=== PATIENT | female | born 1995 | race Caucasian/White ===

== ENCOUNTER 2017-08-16 18:58 | Emergency (ER) | payer BC ==
--- NOTE | 2017-08-16 19:25 | EDM.PDOC ---
ED HPI GENERAL MEDICAL PROBLEM - General Chief Complaint: ENT Problem Stated Complaint: SORE THROAT Time Seen by Provider: 08/16/17 19:20 Source of Information: Reports: Patient History Limitations: Reports: No Limitations - History of Present Illness INITIAL COMMENTS - FREE TEXT/NARRATIVE: c/o ST x 1d no fever, lives with 1yo son who is not ill, works at [employer] no hayfever no rhinorrhea h/o viral ST in past throat Pain Score (Numeric/FACES): 9 - Related Data Allergies Allergy/AdvReac Type Severity Reaction Status Date / Time No Known Allergies Allergy Verified 08/16/17 19:15 Home Meds: Home Meds NK [No Known Home Meds] 08/16/17 [History] Past Medical History - Past Health History Medical/Surgical History: Denies Medical/Surgical History Social & Family History - Tobacco Use Smoking Status *Q: Never Smoker - Recreational Drug Use Recreational Drug Use: No ED ROS ENT - Review of Systems Review Of Systems: See Below Constitutional: Reports: No Symptoms HEENT: Reports: Throat Pain Respiratory: Reports: No Symptoms Cardiovascular: Reports: No Symptoms Endocrine: Reports: No Symptoms GI/Abdominal: Reports: No Symptoms : Reports: No Symptoms Musculoskeletal: Reports: No Symptoms Skin: Reports: No Symptoms Neurological: Reports: No Symptoms Psychiatric: Reports: No Symptoms Hematologic/Lymphatic: Reports: No Symptoms Immunologic: Reports: No Symptoms ED EXAM, ENT - Physical Exam Exam: See Below Exam Limited By: No Limitations General Appearance: Alert, WD/WN, No Apparent Distress Ears: Normal External Exam, Normal Canal, Hearing Grossly Normal, Normal TMs Nose: Normal Inspection, Normal Mucousa, No Blood Mouth/Throat: Other (mild red o-p, 1+ tonsils, no exudate) Head: Atraumatic, Normocephalic Neck: Other (several 0.5 cm at each submandibular angle, nontender) Respiratory/Chest: No Respiratory Distress, Lungs Clear, Normal Breath Sounds, No Accessory Muscle Use, Chest Non-Tender Cardiovascular: Regular Rate, Rhythm, No Edema, No Gallop, No Murmur, No Rub GI/Abdominal: Soft, Non-Tender Back: Normal Inspection, Full Range of Motion Extremities: Normal Inspection, Normal Range of Motion, Non-Tender, No Pedal Edema, Normal Capillary Refill Neurological: Alert, Oriented, CN II-XII Intact, Normal Cognition, No Motor/ Sensory Deficits Psychiatric: Normal Affect, Normal Mood Skin: Warm, Dry, Intact, Normal Color, No Rash Course - Vital Signs Last Recorded V/S: Last Vital Signs Temp 36.7 C 08/16/17 19:11 Pulse 94 08/16/17 19:11 Resp 16 08/16/17 19:11 BP 122/72 08/16/17 19:11 Pulse Ox 100 08/16/17 19:11 - Orders/Labs/Meds Orders: Active Orders 24 hr Category Date Time Status CULTURE STREP A CONFIRMATION [RM] Stat Lab 08/16/17 19:10 Results STREP SCRN A RAPID W CULT CONF [RM] Stat Lab 08/16/17 19:10 Results - Re-Assessments/Exams Free Text/Narrative Re-Assessment/Exam: 08/16/17 20:04 strep test neg Departure - Departure Time of Disposition: 20:04 Disposition: Refer to Observation Condition: Good Clinical Impression: Acute viral pharyngitis - Discharge Information Instructions: Pharyngitis Referrals: Jesse Hines MD [Primary Care Provider] - Forms: ED Department Discharge Additional Instructions: It will take another 4 days to run its course. Take ibuprofen 200 mg 3 tabs and/or acetaminophen 500 mg 2 tabs 4 times a day for 4 days. Use good handwashing. Get adequate rest. May return to work in 3 days if you are feeling better. If not, return to work in 5 days. See your doctor or return to ED if you are feeling worse. Call your Physician or Return to Emergency Department if: * Your condition worsens in any way. * You develop fever greater than 100.4. * You have vomitting that does not stop with medications. * You have pain that is not controlled with medications. - My Orders Last 24 Hours: My Active Orders 08/16/17 19:10 CULTURE STREP A CONFIRMATION [RM] Stat STREP SCRN A RAPID W CULT CONF [RM] Stat - Assessment/Plan Last 24 Hours: My Active Orders 08/16/17 19:10 CULTURE STREP A CONFIRMATION [RM] Stat STREP SCRN A RAPID W CULT CONF [RM] Stat
== END 2017-08-16 20:10 | disposition home or self-care (01) ==
LOC: FB.ED 18:58
DX: J02.8 Acute pharyngitis due to other specified organisms (principal)
CPT/HCPCS: 87081; 87430; 99283

== ENCOUNTER 2019-05-08 23:20 | Emergency (ER) | payer SELFPAY ==
--- NOTE | 2019-05-09 00:22 | EDM.PDOC ---
ED HPI GENERAL MEDICAL PROBLEM - General Chief Complaint: Back Pain or Injury Stated Complaint: FELL AT WORK Time Seen by Provider: 05/09/19 00:05 Source of Information: Reports: Patient History Limitations: Reports: No Limitations - History of Present Illness INITIAL COMMENTS - FREE TEXT/NARRATIVE: 23-year-old female who is a 2 para 1 AB 0 who is approximately 30-31 weeks who was at work and walked across a newly mopped floor and slipped falling landing directly on her right buttock area. She did not hit her head. She did not hit her abdomen. This occurred approximately 9:30 PM tonight. She has no neck pain she does have pain in her right buttock area and her lower back. She rates that pain as a 6/10 now at rest and an 8/10 when she moves or palpates over that area. The pain is a sharp and sore pain. It is better with rest. She has just begun to feel the baby move. She has some mild abdominal discomfort. She has had no vaginal bleeding or vaginal discharge. There are no other associated signs or symptoms. There are no other modifying factors. 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 (see below) (Nothing) Lower back radiating into R hip Pain Score (Numeric/FACES): 6 - Related Data Allergies Allergy/AdvReac Type Severity Reaction Status Date / Time No Known Allergies Allergy Verified 05/08/19 23:44 Home Meds: Home Meds NK [No Known Home Meds] 08/16/17 [History] Past Medical History - Past Health History Medical/Surgical History: Denies Medical/Surgical History [employer] History: Reports: (She is 30-31 weeks .) Other [employer] History: Psychiatric History: Reports: Anxiety, Bipolar, Depression - Past Surgical History Other Surgical History Comment: No previous surgeries. Social & Family History - Tobacco Use Smoking Status *Q: Never Smoker - Caffeine Use Caffeine Use: Reports: Coffee, Soda - Alcohol Use Alcohol Use History: No - Recreational Drug Use Recreational Drug Use: No - Living Situation & Occupation Living situation: Reports: with Significant Other Occupation: Employed (She works at [employer]) ED ROS GENERAL - Review of Systems Review Of Systems: See Below Constitutional: Reports: No Symptoms HEENT: Reports: No Symptoms Respiratory: Reports: No Symptoms Cardiovascular: Reports: No Symptoms Endocrine: Reports: No Symptoms GI/Abdominal: Reports: Abdominal Pain (Mild intermittent abdominal cramping) : Reports: No Symptoms (No discharge. No vaginal bleeding. No dysuria.) Musculoskeletal: Reports: Back Pain (Lower back pain with right foot pain) Skin: Reports: No Symptoms Neurological: Reports: No Symptoms Hematologic/Lymphatic: Reports: No Symptoms Immunologic: Reports: No Symptoms ED EXAM,LOWER BACK PAIN/INJURY - Physical Exam Exam: See Below Exam Limited By: No Limitations General Appearance: Alert, WD/WN, Mild Distress (Secondary to pain.) Eye Exam: Bilateral Eye: EOMI, Normal Inspection, PERRL Ears: Normal External Exam, Hearing Grossly Normal Nose: Normal Inspection, Normal Mucosa, No Blood Throat/Mouth: Normal Inspection, Normal Oropharynx, Normal Voice, No Airway Compromise Head: Atraumatic, Normocephalic Neck: Normal Inspection, Supple, Non-Tender, Full Range of Motion Respiratory/Chest: No Respiratory Distress, Lungs Clear, Normal Breath Sounds, No Accessory Muscle Use, Chest Non-Tender Cardiovascular: Normal Peripheral Pulses, Regular Rate, Rhythm, No Edema, No Murmur GI/Abdominal: Normal Bowel Sounds, Soft, No Distention, Other (Gravid uterus that is somewhat tender to palpation. It does not seem to be firm.) Back Exam: Normal Inspection, Full Range of Motion. No: Paraspinal Tenderness, Vertebral Tenderness Extremities: Normal Inspection, Normal Range of Motion, Non-Tender Neurological: Alert, Normal Mood/Affect, CN II-XII Intact, No Motor/Sensory Deficits, Oriented x 3 Psychiatric: Normal Affect, Normal Mood Skin Exam: Warm, Dry, Intact, Normal Color, No Rash Course - Vital Signs Last Recorded V/S: Last Vital Signs Temp 36.4 C 05/08/19 23:39 Pulse 87 05/08/19 23:39 Resp 18 05/08/19 23:39 BP 118/67 05/08/19 23:39 Pulse Ox 100 05/08/19 23:39 - Orders/Labs/Meds Labs: Laboratory Tests 05/09/19 Range/Units 00:18 Urine Color Yellow (YELLOW) Urine Appearance Clear (CLEAR) Urine pH 6.0 (5.0-6.5) Ur Specific [place] 1.020 (1.010-1.025) Urine Protein Negative (NEGATIVE) mg/dL Urine Glucose (UA) Normal (NORMAL) mg/dL Urine Ketones Negative (NEGATIVE) mg/dL Urine Occult Blood Negative (NEGATIVE) Urine Nitrite Negative (NEGATIVE) Urine Bilirubin Negative (NEGATIVE) Urine Urobilinogen Normal (NEGATIVE) mg/dL Ur Leukocyte Esterase Negative (NEGATIVE) Urine RBC 0-5 (0-5) Urine WBC 0-5 (0-5) Ur Squamous Epith Cells Rare (NS,R,O) Urine Bacteria Rare H (NS) - Re-Assessments/Exams Free Text/Narrative Re-Assessment/Exam: 05/09/19 00:40: The patient appears to have a right buttock contusion and lower acting contusion from the fall. She is approximately 31 weeks and had good heart tones but was having some mild abdominal discomfort. From an emergency department for review the patient would be medically cleared for discharge and I did call and discuss the patient's case with Dr. Arias, inseam trimming machine operator environmental protection economist at [facility], because we do not have the capability for monitoring at this point. Dr. Arias agreed that the patient would need a total monitoring for at least 3 hours. He would be willing to accept the patient in transfer for this maternal- monitoring at [facility] in [place]. I discussed this with the patient and her boyfriend and they are willing to go to [place] for this evaluation. The patient will be transferred via private vehicle and Dr. Arias felt that this was appropriate as well. Departure - Departure Time of Disposition: 01:00 Disposition: DC/Tfer to Acute Hospital 02 Condition: Good (Stable) Clinical Impression: Lumbar back pain, 31 weeks gestation of Fall from slipping on wet surface Qualifiers: Encounter type: initial encounter Qualified Code(s): W01.0XXA - Fall on same level from slipping, tripping and stumbling without subsequent striking against object, initial encounter Contusion, buttock Qualifiers: Encounter type: initial encounter Qualified Code(s): S30.0XXA - Contusion of lower back and pelvis, initial encounter - Discharge Information Referrals: Jesse Hines MD [Primary Care Provider] - Forms: ED Department Discharge Additional Instructions: Go directly to the labor and delivery Department at [facility] for maternal- monitoring and evaluation by Dr. Arias.
== END 2019-05-09 01:03 ==
LOC: FB.ED 23:20
DX: O9A.213 Injury, poisoning and certain other consequences of external causes complicating pregnancy, third trimester (principal); S30.0XXA Contusion of lower back and pelvis, initial encounter; W01.0XXA Fall on same level from slipping, tripping and stumbling without subsequent striking against object, initial encounter; Y99.0 Civilian activity done for income or pay; Z3A.31 31 weeks gestation of pregnancy
CPT/HCPCS: 81001; 99284